=== PATIENT | male | born 2000 | race Caucasian/White ===

== ENCOUNTER 2022-07-02 05:00 | Day surgery (SDC) | payer MEDICAID ==
[2022-07-01 14:42] LABS: BASOPHILS % (AUTO) 0.5 % (0.0-2.0); EOSINOPHILS % (AUTO) 0.4 % (0.0-4.0); HEMATOCRIT 38.3 % (36-54); HEMOGLOBIN 13.2 g/dL (14.0-18.0); LYMPHOCYTES # (AUTO) 2.7 K/uL (1.0-5.5); LYMPHOCYTES % (AUTO) 45.2 % (20.5-51.5); MEAN CORPUSCULAR HEMOGLOBIN 29 pg (27-31); MEAN CORPUSCULAR HGB CONC 34 % (32-36); MEAN CORPUSCULAR VOLUME 85 fL (79.0-98.0); MONOCYTES # (AUTO) 0.5 K/uL (0.0-1.0); MONOCYTES % (AUTO) 8.3 % (1.7-9.3); NEUTROPHILS # (AUTO) 2.7 K/uL (1.8-7.7); NEUTROPHILS % (AUTO) 45.6 % (40.0-70.0); PLATELET COUNT (AUTO) 102 K/uL (130-430); RED BLOOD CELL COUNT(AUTO) 4.49 MIL/uL (4.2-6.2); RED CELL DISTRIBUTION WIDTH 13.1 % (9.0-15.0); WHITE BLOOD COUNT (AUTO) 5.9 K/uL (4.5-11.0)
[2022-07-01 15:22] LABS: ALBUMIN 4.2 g/dL (3.4-4.8); CREATININE 0.69 mg/dL (0.55-1.30); TOTAL BILIRUBIN 0.3 mg/dL (0.0-1.0)
[2022-07-01 15:34] LABS: PROTHROMBIN TIME 10.3 SECS (9.5-12.5)
[~2022-07-02] VITALS: Ht 162.6 cm; Wt 56.2 kg
[~2022-07-02 05:00] MED LIST: LR 1,000 ML IV.SOLN IV ONE; PROPOFOL 200MG/ 20ML VIAL (DIPRIVAN) IV ONE; fentaNYL CITRATE/PF 100 MCG/2 ML AMP IVP ONE
[2022-07-02] MEDS ORDERED: SIMETHICONE 40 MG/0.6 ML ML ONE (07:03)
[2022-07-02] MEDS ORDERED: LR 1,000 ML IV SCH (08:00)
[2022-07-02] MEDS ORDERED: METOCLOPRAMIDE HCL 10 MG/2 ML VIAL IVP PRN (08:00)
[2022-07-02] MEDS ORDERED: ONDANSETRON HCL 4 MG/2 ML VIAL IVP PRN (08:00)
[2022-07-02 08:35] VITALS: BP_SYST 123
== END 2022-07-02 09:10 | disposition home or self-care (01) ==
LOC: SMU 05:00 → SDS 05:00
PROVIDERS: ATTEND Internal Medicine
DX: R63.4 Abnormal weight loss (principal); K64.8 Other hemorrhoids; K29.50 Unspecified chronic gastritis without bleeding; F20.9 Schizophrenia, unspecified; G40.909 Epilepsy, unspecified, not intractable, without status epilepticus; Z79.899 Other long term (current) drug therapy; Z20.822 Contact with and (suspected) exposure to COVID-19
CPT/HCPCS: 36415; 80053; 85025; 85610-TC; 85730-TC; 87081; 88305; 88312; 88313; J2704; J3010; J7120